=== PATIENT | female | born 1960 | race Caucasian/White ===

== ENCOUNTER 2017-01-29 09:01 | Day surgery (SDC) | payer OTHER ==
[2017-01-25 10:22] VITALS: BMI 40.1
[2017-01-29 09:24] VITALS: TEMP 98.1
[2017-01-29] MEDS ORDERED: PROPOFOL 20 ML ONE ×2 (09:35)
[2017-01-29 11:48] VITALS: BP 111/60; PULSE 70
--- NOTE | 2017-01-30 11:28 | PATH ---
Surgical Pathology Report Patient Name: MORA GAONA [facility]. Rec. #: [id number] /Age/Gender: 1960 (Age: 56) / F Account: [id number] Location: [facility]-ENDOSCOPY Taken: 01/29/2017 Received: 01/29/2017 Reported: 01/30/2017 Physicians: Elias Stanton M.D. Specimen(s) Received BX RECTUM Clinical History Rule out colon cancer, family history of polyps Polyps Final Diagnosis COLON, RECTUM, BIOPSY: HYPERPLASTIC POLYP. Electronically Signed Ivan Barraza M.D. Gross Description Received in formalin, labeled "rectum" are 2 aden, irregular portions of soft tissue averaging 0.2 cm. in greatest dimension. The specimens are submitted in toto in one cassette. 01/29/201701/29/2017
== END 2017-01-29 11:45 | disposition home or self-care (01) ==
LOC: FASU-ENDO 09:01
PROVIDERS: ATTEND Internal Medicine Gastroenterology
PROC: 0DBP8ZX Excision of Rectum, Via Natural or Artificial Opening Endoscopic, Diagnostic (ICD-10-PCS; principal; 2017-01-29 10:26)
DX: Z12.11 Encounter for screening for malignant neoplasm of colon (principal); Z83.71 Family history of colonic polyps; K57.30 Diverticulosis of large intestine without perforation or abscess without bleeding; K63.5 Polyp of colon
CPT/HCPCS: 84703; 88305-TC